=== PATIENT | female | born 1945 | race African-American/Black ===

== ENCOUNTER 2016-10-22 12:24 | Emergency (ER) | payer MEDICARE, OTHER ==
--- NOTE | 2016-10-22 12:51 | ER Document Report ---
ED Medical Screen (RME) - General Stated Complaint: HEAD PAIN Notes: patient has intermittent headaches on the right side of her head over the past 2 -3 days. intermittent sharp with associated pressure. denies LOC, head ache, light sensitivity, dizziness, N/V, vision changes. took ASA this am without any improvement denies PMH except cataracts denies migraines TRAVEL OUTSIDE OF THE [place] IN LAST 30 DAYS: No - Related Data Allergies/Adverse Reactions: No Known Allergies Allergy (Verified 10/22/16 12:47) Past Medical History - Past Medical History Cardiac Medical History: Reports: Hx Hypercholesterolemia, Hx Hypertension Denies: Hx Coronary Artery Disease, Hx Heart Attack Pulmonary Medical History: Denies: Hx Asthma, Hx COPD Neurological Medical History: Denies: Hx Cerebrovascular Accident, Hx Seizures Endocrine Medical History: 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 Denies: Hx Diabetes Mellitus Type 1 GI Medical History: Denies: Hx Hepatitis, Hx Hiatal Hernia, Hx Ulcer Infectious Medical History: Denies: Hx Hepatitis Past Surgical History: Reports: Hx Breast Surgery, Hx Section, Hx Cholecystectomy - only removed galstones - galbladder intact. Denies: Hx Hysterectomy, Hx Mastectomy, Hx Open Heart Surgery, Hx Pacemaker - Immunizations Hx Diphtheria, Pertussis, Tetanus Vaccination: Yes
--- NOTE | 2016-10-22 13:29 | ER Document Report ---
ED Headache - General Chief Complaint: Headache Stated Complaint: HEAD PAIN Notes: Patient has a headache on the right side of her head for the past few days. She recalls having a fall last June or July and hitting the back of her head. She was seen here at that time and had a CT scan and was told everything was okay. She's done well during the following months, but for the past couple weeks she's felt dizzy and a couple of days ago began having sharp pains in the right side of her head. She has not had any loss of consciousness. No change in vision. No nausea or vomiting. Has not been sick in any other way such as fever, etc. TRAVEL OUTSIDE OF THE [place] IN LAST 30 DAYS: No - Related Data Allergies/Adverse Reactions: No Known Allergies Allergy (Verified 10/22/16 12:47) Past Medical History - Social History Smoking Status: Never Smoker Chew tobacco use (# tins/day): No Frequency of alcohol use: None Drug Abuse: None Family History: Reviewed & Not Pertinent Patient has suicidal ideation: No Patient has homicidal ideation: No - Past Medical History Cardiac Medical History: Reports: Hx Hypercholesterolemia, Hx Hypertension Neurological Medical History: Denies: Hx Cerebrovascular Accident, Hx Seizures Endocrine Medical History: Reports: Hx Diabetes Mellitus Type 2 - "borderline" Past Surgical History: Reports: Hx Breast Surgery, Hx Section, Hx Cholecystectomy - only removed galstones - galbladder intact - Immunizations Hx Diphtheria, Pertussis, Tetanus Vaccination: Yes Review of Systems - Review of Systems Notes: REVIEW OF SYSTEMS: CONSTITUTIONAL : Denies fever. EENT: Denies eye, ear, nose or mouth or throat pain or other symptoms. CARDIOVASCULAR: Denies chest pain. RESPIRATORY: Denies cough, chest congestion, or shortness of breath. GASTROINTESTINAL: Denies abdominal pain or nausea, vomiting, or diarrhea. GENITOURINARY: Denies difficulty or painful urinating, urinary frequency, blood in urine. MUSCULOSKELETAL: Denies back or neck pain. Denies joint pain or swelling. SKIN: Denies rash or skin lesions. NEUROLOGICAL: Denies LOC or altered mental status. See history of present illness. Denies sensory loss or motor deficits. PSYCHIATRIC: Denies anxiety or stress, but her daughter says that the patient has been getting upset of late with the daughter's children who live with this patient. Denies depression. ALL OTHER SYSTEMS REVIEWED AND NEGATIVE. Physical Exam - Vital signs Vitals: Temp Pulse Resp BP Pulse Ox 98.1 F 81 20 95/58 L 98 10/22/16 12:47 10/22/16 12:47 10/22/16 12:47 10/22/16 12:47 10/22/16 12:47 Interpretation: Normal, Hypotensive - Recorded blood pressure is 95/58, patient does not clinically reflect a blood pressure that low. Pulse rate is normal. Awake and alert. Not diaphoretic. - Notes Notes: PHYSICAL EXAMINATION: GENERAL: Well-appearing, in no acute distress. HEAD: Atraumatic, normocephalic. Minor tenderness to palpate the right scalp. No scalp swelling. EYES: Pupils equal round and reactive to light, extraocular movements intact. ENT: oropharynx clear without exudates. Moist mucous membranes. NECK: Normal range of motion, supple. LUNGS: Breath sounds clear and equal bilaterally. HEART: Regular rate and rhythm without murmurs. ABDOMEN: Soft, nontender. No guarding or rebound. BACK: No tenderness throughout entire back. NEUROLOGICAL: Normal speech, normal gait. Normal sensory, motor, and reflex exams. Awake, alert, and oriented x3. Cranial nerves normal. PSYCH: Normal mood, normal affect. SKIN: Warm, dry, no rashes. Course - Vital Signs Vital signs: Temp Pulse Resp BP Pulse Ox 98.1 F 81 20 113/65 98 10/22/16 12:47 10/22/16 12:47 10/22/16 12:47 10/22/16 13:25 10/22/16 12:47 - Diagnostic Test Radiology reviewed: Image reviewed, Reports reviewed - CT of the patient's brain is normal. Discharge - Discharge Clinical Impression: Headache Qualifiers: Headache type: post-traumatic Headache chronicity pattern: acute headache Intractability: not intractable Qualified Code(s): G44.319 - Acute post- traumatic headache, not intractable Condition: Stable Disposition: HOME, SELF-CARE Additional Instructions: HEADACHE: The physician does not feel that the headache you are experiencing has a serious underlying cause. Most headaches are due to emotional stress, with resultant muscle tension (tension headache). Occasionally, headaches are secondary to changes in the blood vessels of the scalp (vascular headache and migraine headache). Sometimes, a headache is the first symptom of another developing illness, such as a viral infection. You have no evidence of stroke, bleeding, meningitis, or other serious cause of your headache. The treatment of headaches varies with the severity and cause of the pain. Not all headaches need pain shots. In fact, there is evidence that using narcotics for headaches may make them worse in the long run. The physician will determine the therapy that's in your best interest. If you develop a fever, if the headache is different from any you've previously experienced, or if the headache progressively worsens, then call your physician at once or go to the emergency room. Ibuprofen Ibuprofen is an excellent, safe drug for pain control. In addition, it has potent antiinflammatory effects which are beneficial, especially in the treatment of injuries, arthritis, or tendonitis. It's best to take ibuprofen with food. Persons with ulcer disease or allergy to aspirin should notify their physician of this before taking ibuprofen. Take the medication exactly as prescribed. Don't take additional doses unless instructed to do so by your doctor. If you develop wheezing, shortness of breath, hives, faintness, stomach pain, vomiting, or dark black stools, return for re-evaluation at once. USE OF ACETAMINOPHEN (Tylenol): Acetaminophen may be taken for pain relief or fever control. It's much safer than aspirin, offering a wider range of "safe" dosages. It is safe during . Some brand names are Tylenol, Panadol, Datril, Anacin 3, Tempra, and Liquiprin. Acetaminophen can be repeated every four hours. The following are maximum recommended dosages: WEIGHT Dose Drops Elixir Chewable( 80mg) (LBS.) drprs=droppers tsp=teaspoon >89 pounds or adults 650 mg to 900 mg Acetaminophen can be repeated every four hours. Maximum dose not to exceed 4000 mg a day. These maximum recommended dosages are slightly higher than the dosages written on the product container, but these dosages are very safe and below the toxic dosage for acetaminophen. ORAL NARCOTIC MEDICATION: You have been given a prescription for pain control. This medication is a narcotic. It's best taken with food, as nausea can result if taken on an empty stomach. Don't operate machinery or drive within six hours of taking this medication. Do not combine this medicine with alcohol, or with any medication which can cause sedation (such as cold tablets or sleeping pills) unless you get permission from the physician. Narcotics tend to cause constipation. If possible, drink plenty of fluids and eat a diet high in fiber and fruits. FOLLOW-UP CARE: If you have been referred to a physician for follow-up care, call the physician s office for an appointment as you were instructed or within the next two days. If you experience worsening or a significant change in your symptoms, notify the physician immediately or return to the Emergency Department at any time for re-evaluation. Follow-up with your primary care provider if you continue to have these headaches for more than another few days to week. Prescriptions: Oxycodone HCl/Acetaminophen [Percocet 5-325 mg Tablet] 1 - 2 tab PO Q4H PRN #10 tablet PRN Reason: Referrals: ALDO WHITE MD [Primary Care Provider] - Follow up as needed
[2016-10-22 15:23] VITALS: BP 120/71
== END 2016-10-22 15:23 | disposition home or self-care (01) ==
LOC: ER 12:24
DX: G44.319 Acute post-traumatic headache, not intractable (principal); W19.XXXA Unspecified fall, initial encounter
CPT/HCPCS: 70450; 99284

== ENCOUNTER 2017-01-02 17:54 | Emergency (ER) | payer MEDICARE, OTHER ==
[2017-01-02] MEDS ORDERED: MECLIZINE HCL 25 MG TABLET PO ONE (18:05)
[2017-01-02] MEDS ORDERED: ACETAMINOPHEN 325 MG TABLET PO ONE (18:05)
--- NOTE | 2017-01-02 18:08 | ER Document Report ---
ED Medical Screen (RME) - General Chief Complaint: Dizziness Stated Complaint: HEADACHE Mode of Arrival: Ambulatory Information source: Patient Notes: Patient presents to the emergency department with complaints of dizziness for the past few weeks. Patient reports she has a history of this dizziness has taken meclizine in the past but she doesn't have any now. She denies other symptoms like such as fever vomiting diarrhea. No complaints head trauma. Patient reports if it takes too long she'll just leave. Also c/o sinus CISNEROS. I have greeted and performed a rapid initial assessment of this patient. A comprehensive ED assessment and evaluation of the patient, analysis of test results and completion of the medical decision making process will be conducted by additional ED providers. TRAVEL OUTSIDE OF THE [place] 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 Denies: Hx Diabetes Mellitus Type 1 Renal/ Medical History: Denies: Hx Peritoneal Dialysis GI Medical History: Denies: Hx Hepatitis, Hx Hiatal Hernia, Hx Ulcer Infectious Medical History: Denies: Hx Hepatitis Past Surgical History: Reports: Hx Breast Surgery, Hx Section, Hx Cholecystectomy - only removed galstones - galbladder intact. Denies: Hx Hysterectomy, Hx Mastectomy, Hx Open Heart Surgery, Hx Pacemaker - Immunizations Hx Diphtheria, Pertussis, Tetanus Vaccination: Yes Physical Exam - Vital signs Vitals: Temp Pulse Resp BP Pulse Ox 98.4 F 70 20 160/92 H 99 01/02/17 18:02 01/02/17 18:02 01/02/17 18:02 01/02/17 18:02 01/02/17 18:02 Course - Vital Signs Vital signs: Temp Pulse Resp BP Pulse Ox 98.4 F 70 20 160/92 H 99 01/02/17 18:02 01/02/17 18:02 01/02/17 18:02 01/02/17 18:02 01/02/17 18:02
[2017-01-02 18:48] LABS: ABSOLUTE EOSINOPHILS # (AUTO) 0.3 10^3/uL (0.0-0.6); ABSOLUTE LYMPHOCYTES (AUTO) 2.3 10^3/uL (0.5-4.7); ABSOLUTE MONOCYTES (AUTO) 0.5 10^3/uL (0.1-1.4); ABSOLUTE NEUT (AUTO) 2.6 10^3/uL (1.7-8.2); BASOPHILS % (AUTO) 0.8 % (0-2); EOSINOPHILS % (AUTO) 4.6 % (0-6); HEMATOCRIT 34.2 % (36.0-47.0); HEMOGLOBIN 11.2 g/dL (12.0-15.5); HGB HCT DIFFERENCE -0.6; LYMPHOCYTES % (AUTO) 40.1 % (13-45); MEAN CORPUSCULAR HEMOGLOBIN 27.3 pg (27.0-33.4); MEAN CORPUSCULAR HGB CONC 32.7 g/dL (32.0-36.0); MEAN CORPUSCULAR VOLUME 84 fl (80-97); MONOCYTES % (AUTO) 8.9 % (3-13); RED CELL DISTRIBUTION WIDTH 14.8 % (11.5-14.0); SEGMENTED NEUTROPHILS % (AUTO) 45.6 % (42-78); WHITE BLOOD COUNT 5.8 10^3/uL (4.0-10.5)
[2017-01-02 19:05] LABS: ALANINE AMINOTRANSFERASE 21 U/L (9-52); ALBUMIN 4.1 g/dL (3.5-5.0); ALKALINE PHOSPHATASE 76 U/L (38-126); ANION GAP 9 (5-19); ASPARTATE AMINO TRANSFERASE 20 U/L (14-36); BILIRUBIN,DIRECT 0.1 mg/dL (0.0-0.4); BILIRUBIN,TOTAL 0.4 mg/dL (0.2-1.3); BLOOD UREA NITROGEN 20 mg/dL (7-20); CALCIUM 9.8 mg/dL (8.4-10.2); CARBON DIOXIDE 29 mmol/L (22-30); CHLORIDE 104 mmol/L (98-107); CREATININE RESULT 0.89 mg/dL (0.52-1.25); GLUCOSE 115 mg/dL (75-110); POTASSIUM 4.2 mmol/L (3.6-5.0); SODIUM 142.1 mmol/L (137-145); TOTAL PROTEIN 7.3 g/dL (6.3-8.2)
--- NOTE | 2017-01-02 22:31 | ER Document Report ---
ED General - General Chief Complaint: Dizziness Stated Complaint: HEADACHE Mode of Arrival: Ambulatory Information source: Patient Notes: This is a 71-year-old female presents to ER with concern of dizziness. She states that she has a history of vertigo and that the symptoms same. She states she has had dizziness off and on for the past week. Normally she takes meclizine but she is currently out of it. Tonight at about 1700 she had an episode of vertigo associated with some nausea but no vomiting. She denies any headache. No vision changes. No weakness or paresthesias. No fevers or chills. TRAVEL OUTSIDE OF THE [place] IN LAST 30 DAYS: No - Related Data Allergies/Adverse Reactions: No Known Allergies Allergy (Verified 01/02/17 18:05) Past Medical History - General Information source: Patient - Social History Smoking Status: Never Smoker Chew tobacco use (# tins/day): No Frequency of alcohol use: None Drug Abuse: None Family History: Reviewed & Not Pertinent - Past Medical History Cardiac Medical History: Reports: Hx Hypercholesterolemia, Hx Hypertension Denies: Hx Coronary Artery Disease, Hx Heart Attack Pulmonary Medical History: Denies: Hx Asthma, Hx COPD Neurological Medical History: Denies: Hx Cerebrovascular Accident, Hx Seizures Endocrine Medical History: 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 Denies: Hx Diabetes Mellitus Type 1 Renal/ Medical History: Denies: Hx Peritoneal Dialysis GI Medical History: Denies: Hx Hepatitis, Hx Hiatal Hernia, Hx Ulcer Infectious Medical History: Denies: Hx Hepatitis Past Surgical History: Reports: Hx Breast Surgery, Hx Section, Hx Cholecystectomy - only removed galstones - galbladder intact. Denies: Hx Hysterectomy, Hx Mastectomy, Hx Open Heart Surgery, Hx Pacemaker - Immunizations Hx Diphtheria, Pertussis, Tetanus Vaccination: Yes Review of Systems - Review of Systems Notes: REVIEW OF SYSTEMS: CONSTITUTIONAL : Denies fever, chills, or sweats. Denies recent illness. EENT: Denies eye, ear, throat, or mouth pain or symptoms. Denies nasal or sinus congestion. CARDIOVASCULAR: Denies chest pain. RESPIRATORY: Denies cough, cold, or chest congestion. Denies shortness of breath, difficulty breathing, or wheezing. GASTROINTESTINAL: Denies abdominal pain. Denies nausea, vomiting, or diarrhea. GENITOURINARY: Denies difficulty urinating, painful urination, burning, frequency, or blood in urine. MUSCULOSKELETAL: Denies neck or back pain or joint pain or swelling. SKIN: Denies rash or skin lesions. HEMATOLOGIC : Denies easy bruising or bleeding. LYMPHATIC: Denies swollen, enlarged glands. NEUROLOGICAL: Denies headache. Otherwise As per history of present illness PSYCHIATRIC: Denies anxiety or stress or depression. ALL OTHER SYSTEMS REVIEWED AND NEGATIVE. Physical Exam - Vital signs Vitals: Temp Pulse Resp BP Pulse Ox 98.4 F 70 20 160/92 H 99 01/02/17 18:02 01/02/17 18:02 01/02/17 18:02 01/02/17 18:02 01/02/17 18:02 - Notes Notes: PHYSICAL EXAMINATION: GENERAL: Well-appearing, well-nourished and in no acute distress. Very pleasant and conversant and appears mentioning than stated age. HEAD: Atraumatic, normocephalic. EYES: Pupils equal round and reactive to light, extraocular movements intact, sclera anicteric, conjunctiva are normal. ENT: nares patent, oropharynx clear without exudates. Moist mucous membranes. NECK: Normal range of motion, supple without lymphadenopathy LUNGS: Breath sounds clear to auscultation bilaterally and equal. No wheezes rales or rhonchi. HEART: Regular rate and rhythm without murmurs ABDOMEN: Soft, nontender, normoactive bowel sounds. No guarding, no rebound. No masses appreciated. EXTREMITIES: Normal range of motion, no pitting or edema. NEUROLOGICAL: Cranial nerves grossly intact. Normal speech, normal gait. Motor strength was 5/5 bilateral upper and lower extremities. Sensation intact. Negative finger to toes. Negative Romberg. PSYCH: Normal mood, normal affect. SKIN: Warm, Dry, normal turgor, no rashes or lesions noted. Course - Re-evaluation Re-evalutation: 01/02/17 22:35 Patient states that her symptoms had resolved after the meclizine. She requests a prescription of meclizine and she would really like to go home now. Of note she has refused her CT that was ordered after her initial triage. She states that she knows what's wrong and that the meclizine has fixed her problem. We did discuss signs and symptoms of stroke and patient again refuses head CT and states that she will follow-up with her primary physician and will certainly return to the emergency department should she develop any worsening symptoms or concerns, specifically severe headache, fever, vision changes, or numbness or tingling or weakness on one side of the body. - Vital Signs Vital signs: Temp Pulse Resp BP Pulse Ox 98.4 F 70 20 160/92 H 99 01/02/17 18:02 01/02/17 18:02 01/02/17 18:02 01/02/17 18:02 01/02/17 18:02 - Laboratory Result Diagrams: 01/02/17 18:30 01/02/17 18:30 Laboratory results interpreted by me: 01/02/17 01/02/17 18:30 18:30 Hgb 11.2 L Hct 34.2 L RDW 14.8 H Glucose 115 H Discharge - Discharge Clinical Impression: Vertigo Hypertension Qualifiers: Hypertension type: essential hypertension Qualified Code(s): I10 - Essential ( primary) hypertension Condition: Stable Disposition: HOME, SELF-CARE Additional Instructions: Vertigo You have experienced an episode of vertigo -- a whirling dizziness which may be accompanied by nausea and vomiting or staggering. Vertigo is often caused by an irritation of the inner ear, in which case it is called labyrinthitis. It can also be a symptom of a degenerating inner ear, nerve damage, or brain injury. Your physician has evaluated you to determine whether any further testing is necessary. Vertigo is often treated with dramamine or meclizine. These medications are helpful, but stronger medication may be needed if you are vomiting. Rest in bed. You should not drive or operate machinery until completely better. It may take one to three weeks for recovery. If there are new symptoms, such as decreased hearing or vision, severe headache, weakness or faintness, or confusion, call the physician. As discussed, please follow up with your primary physician in 2-3 days. Return to ER immediately for worsening symptoms, especially for severe headache, fever , numbness/tingling/weakness, or any worsening symptoms or concerns. Prescriptions: Meclizine HCl 25 mg PO Q6H PRN #12 tablet PRN Reason: for dizziness Forms: Elevated Blood Pressure Referrals: IRIS VALE MD [Primary Care Provider] - Follow up in 3-5 days
[2017-01-02 22:51] VITALS: BP 163/97
--- NOTE | 2017-01-03 08:54 | EKG REPORT ---
SEVERITY:- NORMAL ECG - SINUS RHYTHM : Confirmed by: Miguel Angel Olivera MD 03-Jan-2017 08:54:14
== END 2017-01-02 22:50 | disposition home or self-care (01) ==
LOC: ER 17:54
DX: R42 Dizziness and giddiness (principal); I10 Essential (primary) hypertension; R51 Headache; E78.00 Pure hypercholesterolemia, unspecified; R73.03 Prediabetes; Z90.49 Acquired absence of other specified parts of digestive tract
CPT/HCPCS: 93005; 99284; 36415; 85025; 80053; 93010; A9270 ×2

== ENCOUNTER 2018-07-08 10:17 | Emergency (ER) | payer MEDICARE, OTHER ==
[2018-07-08 10:27] VITALS: BP 120/74
--- NOTE | 2018-07-08 11:54 | RADIOLOGY REPORT (SQ) ---
EXAM DESCRIPTION: KNEE LEFT 4 VIEW COMPLETED DATE/TIME: 07/08/2018 11:22 am REASON FOR STUDY: Fall 4 weeks ago swelling pain now COMPARISON: 11/05/2014. NUMBER OF VIEWS: Four views. TECHNIQUE: AP, lateral, and both oblique radiographic images acquired of the left knee. LIMITATIONS: None. FINDINGS: MINERALIZATION: Normal. BONES: No acute fracture or dislocation. No worrisome bone lesions. Joint space narrowing with osteop hytes. JOINT: No effusion. Chondrocalcinosis. OTHER: No other significant finding. IMPRESSION: CHRONIC DEGENERATIVE CHANGES. NO ACUTE FINDINGS. TECHNICAL DOCUMENTATION: JOB ID: [id number]- All Rights Reserved Reading location - IP/workstation name: [email or web address]
--- NOTE | 2018-07-08 12:38 | ER Document Report ---
ED Extremity Problem, Lower - General Chief Complaint: Knee Pain Stated Complaint: LEG PAIN Time Seen by Provider: 07/08/18 11:01 Information source: Patient Notes: Patient is a 72-year-old female comes emergency room complaint of left knee pain. Patient states it has been hurting on and off for approximately 4 weeks but is gotten worse over the past 2 days since she fell 4 weeks ago. She states the whole knee is swollen. 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 She is on her feet all day long and by the end of the day her legs are hurting her especially her left knee. She denies any other known trauma. TRAVEL OUTSIDE OF THE [place] IN LAST 30 DAYS: No - HPI Patient complains to provider of: Injury, Pain, Swelling Location: Knee Where: Home Onset/Duration: Sudden, Worse Quality of pain: Achy, Throbbing Severity: Moderate Pain Level: 4 Context: Fell Recent injury: Yes Exacerbated by: Movement, Walking Relieved by: Rest - Related Data Allergies/Adverse Reactions: No Known Allergies Allergy (Verified 07/08/18 10:18) Past Medical History - General Information source: Patient - Social History Smoking Status: Former Smoker Cigarette use (# per day): No Chew tobacco use (# tins/day): No Smoking Education Provided: No Frequency of alcohol use: Rare Drug Abuse: None Family History: Reviewed & Not Pertinent Patient has suicidal ideation: No Patient has homicidal ideation: No - Past Medical History Cardiac Medical History: Reports: Hx Hypercholesterolemia, Hx Hypertension Denies: Hx Coronary Artery Disease, Hx Heart Attack Pulmonary Medical History: Denies: Hx Asthma, Hx COPD Neurological Medical History: Denies: Hx Cerebrovascular Accident, Hx Seizures Endocrine Medical History: 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 Denies: Hx Diabetes Mellitus Type 1 Renal/ Medical History: Denies: Hx Peritoneal Dialysis GI Medical History: Denies: Hx Hepatitis, Hx Hiatal Hernia, Hx Ulcer Infectious Medical History: Denies: Hx Hepatitis Past Surgical History: Reports: Hx Breast Surgery, Hx Section, Hx Cholecystectomy - only removed galstones - galbladder intact. Denies: Hx Hysterectomy, Hx Mastectomy, Hx Open Heart Surgery, Hx Pacemaker - Immunizations Hx Diphtheria, Pertussis, Tetanus Vaccination: Yes Review of Systems - Review of Systems Constitutional: No symptoms reported EENT: No symptoms reported Cardiovascular: No symptoms reported Respiratory: No symptoms reported Gastrointestinal: No symptoms reported Genitourinary: No symptoms reported Female Genitourinary: No symptoms reported Musculoskeletal: Joint pain, Muscle pain Skin: No symptoms reported Hematologic/Lymphatic: No symptoms reported Neurological/Psychological: No symptoms reported -: Yes All other systems reviewed and negative Physical Exam - Vital signs Vitals: Temp Pulse Resp BP Pulse Ox 97.9 F 73 20 120/74 98 07/08/18 10:24 07/08/18 10:24 07/08/18 10:24 07/08/18 10:24 07/08/18 10:24 Interpretation: Normal - Notes Notes: Well-nourished well-developed 72-year-old female no apparent distress. - HEENT Head: Normocephalic, Atraumatic Eyes: Normal - Respiratory Respiratory status: No respiratory distress Chest status: Nontender Breath sounds: Normal. No: Rales, Rhonchi, Stridor, Wheezing Chest palpation: Normal - Cardiovascular Rhythm: Regular Heart sounds: Normal auscultation Murmur: No - Back Back: Normal, Nontender. No: Deformity/step-off, CVA tenderness, Vertebra tenderness - Extremities General upper extremity: Normal inspection, Nontender, Normal ROM, Normal strength Knee: Tender, Joint effusion, Pain with ROM, Patellar tendon intact, Popliteal fossa tender - Examination of patient's knee shows her left compared to right look about the same. Patient has some swollen or fatty type of tissue around her knees that hang over top. But examination shows no patella floating bilaterally she got good popliteal pulses. She has good distal pulses and dorsalis pedal of both feet. She has good cap refill in the nailbeds of all toes. She has good flexion-extension of bilateral knees. Patient has good strength against resistance with the left and right leg. As stated the right and left comparatively in size.. No: Drawer's test instability, Ecchymosis, Instability, Laxity with valgus stress, Laxity with varus stress Course - Re-evaluation Re-evalutation: 07/08/18 12:38 I believe most of patient's problem is degenerative causing swelling. We will place her on a steroid taper and have her follow-up with orthopedist. Not sure she is quite ready for a knee replacement but physical therapy may help or possibly joint injections. 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 Ice to her knees when you get home from work each night for 20 minutes. The swelling is due to a believe disease. This is caused by overuse as we get older as well. This causes inflammation swelling and pain. I am placing you on a taper of steroids which should help you dramatically if it does then I would suggest following up with orthopedist for possible intra- articular injections. Or the possibility of knee surgery. Should you have any concerns or problems return to ER. Prescriptions: Prednisone [Sterapred Ds] 10 mg PO ASDIR PRN #1 tab.[id number] PRN Reason: Forms: Elevated Blood Pressure Referrals: NICKI OBRIEN MD [ACTIVE STAFF] - Follow up as needed
== END 2018-07-08 12:50 | disposition home or self-care (01) ==
LOC: ER 10:17
DX: M17.5 Other unilateral secondary osteoarthritis of knee (principal); M25.562 Pain in left knee; M79.605 Pain in left leg; E78.00 Pure hypercholesterolemia, unspecified; I10 Essential (primary) hypertension; E11.9 Type 2 diabetes mellitus without complications; Z90.49 Acquired absence of other specified parts of digestive tract
CPT/HCPCS: 99283

== ENCOUNTER 2018-07-14 08:48 | Emergency (ER) | payer MEDICARE, OTHER ==
[2018-07-14 08:54] VITALS: BP 125/69
--- NOTE | 2018-07-14 09:14 | ER Document Report ---
HPI - HPI Patient complains to provider of: med refill Onset: Other - primary md last week Quality of pain: Achy Severity: Mild Pain Level: 2 Context: 72-year-old female presents to ED for complaint of out of blood pressure medication. She states she takes lisinopril hydrochlorothiazide 20/25. She states she also takes ibuprofen once a day but she has 1 more refill on her prescription. She states her primary care doctor Dr. Whitt last month and she has not yet been able to get into a primary doctor. I have contacted Dr. Bishop's office and they stated if she got her medical records from Dr. Hayes office and call today that we try to schedule her for 28 July. I will give her a prescription for a month of her lisinopril hydrochlorothiazide. Other than that patient states she just has her normal aches and pains. She states she was here 3 days ago for swollen legs and was treated. 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 Patient is alert and oriented respirations regular and unlabored speaking full sentences walks with a even steady gait. Associated Symptoms: Other - His blood pressure Medication Exacerbated by: Denies Relieved by: Denies Similar symptoms previously: Yes Recently seen / treated by doctor: Yes - ROS ROS below otherwise negative: Yes - EENT EENT: DENIES: Sore Throat, Ear Pain, Nasal Drainage-Clear, Nasal Drainage- Purulent, Congestion, Eye problems - NEURO Neurology: DENIES: Headache, Weakness, Vision blurred, Dizzinesss / Vertigo - CARDIOVASCULAR Cardiovascular: DENIES: Chest pain - RESPIRATORY Respiratory: DENIES: Trouble Breathing, Coughing - GASTROINTESTINAL Gastrointestinal: DENIES: Abdominal Pain, Nausea, Patient vomiting, Diarrhea, Constipation, Black / Bloody Stools - URINARY Urinary: DENIES: Dysuria, Urgency, Frequency - REPRODUCTIVE Reproductive: DENIES: :, Postmenopausal, Abnormal bleeding / discharge - MUSCULOSKELETAL Musculoskeletal: DENIES: Extremity pain - Chronic leg pain, Back Pain, Neck Pain , Swelling - DERM Skin Color: Normal Skin Problems: None Past Medical History - General Information source: Patient - Social History Smoking Status: Never Smoker Cigarette use (# per day): No Chew tobacco use (# tins/day): No Smoking Education Provided: No Frequency of alcohol use: None Drug Abuse: None 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 Lives with: Family Family History: Reviewed & Not Pertinent Patient has suicidal ideation: No Patient has homicidal ideation: No - Past Medical History Cardiac Medical History: Reports: Hx Hypercholesterolemia, Hx Hypertension Pulmonary Medical History: Reports: None EENT Medical History: Reports: None Neurological Medical History: Reports: None Endocrine Medical History: Reports: Hx Diabetes Mellitus Type 2 - "borderline" Renal/ Medical History: Reports: None Malignancy Medical History: Reports: None GI Medical History: Reports: None Musculoskeletal Medical History: Reports None Skin Medical History: Reports None Psychiatric Medical History: Reports: None Traumatic Medical History: Reports: None Infectious Medical History: Reports: None Past Surgical History: Reports: Hx Breast Surgery, Hx Section, Hx Cholecystectomy - only removed galstones - galbladder intact - Immunizations Hx Diphtheria, Pertussis, Tetanus Vaccination: Yes Vertical Provider Document - CONSTITUTIONAL Agree With Documented VS: Yes Exam Limitations: No Limitations General Appearance: WD/WN, No Apparent Distress - INFECTION CONTROL TRAVEL OUTSIDE OF THE [place] IN LAST 30 DAYS: No - HEENT HEENT: Atraumatic, Normal ENT Exam, Normocephalic, PERRLA - NECK Neck: Normal Inspection - RESPIRATORY Respiratory: Breath Sounds Normal, No Respiratory Distress - CARDIOVASCULAR Cardiovascular: Regular Rate, Regular Rhythm - GI/ABDOMEN Gastrointestinal: Abdomen Soft, Abdomen Non-Tender, No Organomegaly, Normal Bowel Sounds - REPRODUCTIVE Female Genitalia: Normal Inspection - BACK Back: Normal Inspection - MUSCULOSKELETAL/EXTREMETIES Musculoskeletal/Extremeties: MAEW, FROM, Non-Tender - NEURO Level of Consciousness: Awake, Alert, Appropriate Motor/Sensory: No Motor Deficit, No Sensory Deficit Deep Tendon Reflexes: 2+ - DERM Integumentary: Warm, Dry, No Rash Course - Re-evaluation Re-evalutation: 07/14/18 09:25 Patient was given a prescription for 1 months of lisinopril hydrochlorothiazide . She was also given the name and number for Dr. Bishop's office. I did call the office in the pathology secretary/transcriptionist stated that they would be able to get her in on the if she picked up her records from Dr. Hayes office and call them today to schedule an appointment. I did give this information to the patient. She was very thankful for this information and stated she would call today. - Vital Signs Vital signs: Temp Pulse Resp BP Pulse Ox 98.5 F 65 18 125/69 99 07/14/18 08:52 07/14/18 08:52 07/14/18 08:52 07/14/18 08:52 07/14/18 08:52 Discharge - Discharge Clinical Impression: med refill for htn Condition: Stable Disposition: HOME, SELF-CARE Instructions: Family Physicians / Practices Additional Instructions: You were seen today for refill of your blood pressure medicine. You state you on lisinopril hydrochlorothiazide 20/25 mg. I have contacted Dr. Bishop's office at [phone] and they have stated that if you would call them today they can get you scheduled for July 28 for follow-up HYDROCHLOROTHIAZIDE: Hydrochlorothiazide is a diuretic medication. Diuretics are often called "water pills." The medicine flushes excess salt and water from the body. Diuretics are used for fluid retention (such as heart failure, cirrhosis, or lung disease) and for blood pressure control. Often hydrochlorothiazide is combined with other medicines in the same pill. Most patients prefer to take the medicine in the morning. Hydrochlorothiazide makes extra urine, which can be a problem if you take the pill at night. Diuretics make you lose potassium. Sometimes a good diet with plenty of fruit is enough to replace it. Sometimes a potassium supplement is necessary. Or, hydrochlorothiazide may be combined with medicines that prevent potassium loss. We usually recommend a blood potassium test in a few weeks. Contact your doctor if you develop extreme fatigue, muscle weakness, lethargy, confusion, or palpitations. ANGIOTENSIN CONVERTING ENZYME INHIBITOR MEDICATION: "KYLE inhibitor" drugs are used to lower high blood pressure (or to reduce the "work" of the heart in patients with heart failure). These drugs block an enzyme that makes your blood vessels constrict and makes you retain salt. The result is lower blood pressure. KYLE inhibitors cause few side effects. The most common side effect is a dry nagging cough. Occasionally, lightheadedness may occur while you get used to the medicine. Some patients may retain extra potassium (this is a problem if you are taking potassium supplements, potassium-containing salt substitutes, or a potassium-retaining drug such as triamterene, spironolactone, or amiloride) . If you are taking lithium, the lithium level must be rechecked after starting an KYLE inhibitor. KYLE inhibitors should NOT be used during . Contact the doctor or return if you develop severe lightheadedness, wheeze , weakness, palpitations or other new symptoms. FOLLOW-UP CARE: If you have been referred to a physician for follow-up care, call the physician s office for an appointment as you were instructed or within the next two days. If you experience worsening or a significant change in your symptoms, notify the physician immediately or return to the Emergency Department at any time for re-evaluation. Prescriptions: Lisinopril/Hydrochlorothiazide [Lisinopril-Hctz 20-25 mg Tab] 1 each PO DAILY # 30 tablet Referrals: EDDIE BISHOP MD [ACTIVE STAFF] - Follow up as needed
== END 2018-07-14 09:22 | disposition home or self-care (01) ==
LOC: ER 08:48
DX: I10 Essential (primary) hypertension (principal)
CPT/HCPCS: 99281